=== PATIENT | male | born 1955 | race Caucasian/White ===

== ENCOUNTER → 2019-03-18 | Day surgery (SDC) | payer OTHER ==
[~2019-03-18] MED LIST: AMIT50TA PO; ATOR20TA58 PO; DOCU-109 PO; GLUC-11 PO; IV RINGERS SOLUTION,LACTATED 1,000 ML IV SCH; LEVO175T5 PO; LISI1TAB23 PO; METF500T16 PO; MIDAZOLAM HCL PF 2 MG/2 ML VIAL. IV ONE; ONDANSETRON PF 4 MG/2 ML VIAL. IV PRN; PANT40TA5 PO; PROPOFOL 40 ML IV ONE; QUET50TA5 PO; SAW160CA3 PO
[2019-03-18 13:50] VITALS: BP 111/65
--- NOTE | 2019-03-20 15:07 | PATHOLOGY ---
[facility] Accession Number: [id number] . 01 Material submitted: . PART A: stomach - ANTRUM BIOPSY PART B: colon - DESCENDING COLON POLYP. Modifiers: descending . 01 Clinical history: . Upper abdominal pain, Hx polyps . 02 Diagnosis: A. Gastric biopsies, antrum: - Congestion and focal mild chronic inflammation. . B. Colon biopsy, descending colon polyp: - Tubular adenoma. . (JPM:bina; 03/20/2019) MBR 03/20/2019 1319 Local . 02 Comment: Sections of the gastric antral biopsy show congestion and focal mild chronic inflammation. A properly controlled immunoperoxidase stain for Helicobacter is negative for Helicobacter organisms. There is no evidence of malignancy. . Sections of the descending colon biopsy reveal a tubular adenoma showing no high-grade dysplasia or evidence of malignancy. . (JPM:bina; 03/20/2019) . Special stain performed: Immunoperoxidase stain for Helicobacter . 02 Electronically signed: . Marek Shore MD, Pathologist NPI- [id number] . 01 Gross description: . A. Received in formalin labeled "Saturnino Gifford, antrum BX," are 2 segments of jay soft tissue measuring 0.7 x 0.2 x 0.1 cm in aggregate dimensions and ranging from 0.3 to 0.4 cm in maximum dimension. The specimen is submitted entirely in cassette A1. . B. Received in formalin labeled "Saturnino Gifford, descending colon polyp," is a single segment of jay soft tissue measuring 0.3 cm in maximum dimension. The specimen is entirely submitted in cassette B1. (TSD; 03/19/2019) TOB/TOB 03/19/2019 2300 Local . 02 Pathologist provided ICD-10: K29.50, D12.4 . 02 CPT . 081382, 785178, [id number] Specimen Comment: A courtesy copy of this report has been sent to [phone], [phone] Specimen Comment: [id number] Specimen Comment: Report sent to / DR CHILDERS Specimen Comment: A duplicate report has been generated due to demographic updates. Performed at: 01 [facility] [address] [facility] [address], [place] [id number] MD Luis Fernando Koch MD Phone: [phone] Performed at: 02 [facility] [place] [address] [place], [place] [id number] MD Marek Shore MD Phone: [phone]
== END | disposition home or self-care (01) ==
LOC: SURG 12:20
PROVIDERS: ATTEND Internal Medicine Gastroenterology
DX: K59.00 Constipation, unspecified (principal); D12.4 Benign neoplasm of descending colon; K57.30 Diverticulosis of large intestine without perforation or abscess without bleeding; K64.8 Other hemorrhoids; K63.89 Other specified diseases of intestine; K21.9 Gastro-esophageal reflux disease without esophagitis; K29.50 Unspecified chronic gastritis without bleeding; K80.80 Other cholelithiasis without obstruction; Z86.010 Personal history of colon polyps; Z88.1 Allergy status to other antibiotic agents; Z79.899 Other long term (current) drug therapy; Z79.84 Long term (current) use of oral hypoglycemic drugs; Z98.890 Other specified postprocedural states
CPT/HCPCS: 43239; 45380; J2704; J7120